=== PATIENT | male | born 1975 | race Caucasian/White ===

== ENCOUNTER 2024-12-18 21:14 | Inpatient (IN) | payer SELFPAY ==
--- OUTSIDE RECORDS SUMMARY | 2024-12-18 21:25 | XMS_ITS | Clinical Summary ---
Author Organization [facility] Address [address] [place] [address] Phone Care Team Providers Care Exhaust Tender Name Role Phone Provider, None Primary Care Provider Unavailabl e Allergies Active Allergy Reactions Criticality Noted Date Comments No Known Drug Allergy Other (see Comments) 04/2002 No Known Latex Allergy Other (see Comments) 04/2002 Medications aspirin 81 MG Chewable Tablet Take 1 Tab by mouth daily. 100 Tab 018 Active Additional Information Patient not taking.Reported on 09/09/2023 atorvastatin (LIPITOR) 40 MG Tablet Take 1 Tab by mouth nightly. 90 Tab 1 019 Active Additional Information Patient not taking.Reported on 09/09/2023 clopidogrel (PLAVIX) 75 MG Tablet Take 1 Tab by mouth daily. 90 Tab 1 019 Active Additional Information Patient not taking.Reported on 09/09/2023 metoprolol Succinate (TOPROL-XL) 25 MG TABLET SR 24 HR Take 0.5 Tabs by mouth nightly. 45 Tab 1 019 Active Additional Information Patient not taking.Reported on 09/09/2023 Lidocaine (Salonpas Pain Relieving) 4 % PatchIndications:Ac poli left-sided low back pain without sciatica 1 Patch by Transdermal route every 24 hours. 20 Patch 024 Active Additional Information Patient not taking.Reported on 02/19/2024 tamsulosin (FLOMAX) 0.4 MG Capsule Take 1 Capsule by mouth daily. For stent discomfort. May cause dizziness 30 Capsule Active oxybutynin (DITROPAN) 5 MG Tablet Take 1 Tablet by mouth 2 times daily as needed (bladder spasm, stent discomfort). May cause constipation. Take with stool softener. May cause dry mouth. Stop if foggy or cloudy memory 15 Tablet Active Additional Information Patient not taking.Reported on 02/19/2024 oxybutynin (DITROPAN) 5 MG Tablet Take 1 Tablet by mouth 2 times daily as needed (bladder spasm, stent discomfort). Take 1 Tablet by mouth 2 times daily as needed (bladder spasm, stent discomfort). May cause constipation. Take with stool softener. May cause dry mouth. Stop if foggy or cloudy memory 15 Tablet Active Additional Information Patient not taking.Reported on 02/19/2024 tamsulosin (FLOMAX) 0.4 MG Capsule Take 1 Capsule by mouth daily. Take 1 Capsule by mouth daily. For stent discomfort. May cause dizziness 30 Capsule Active famotidine (PEPCID) 20 MG TabletIndications:S ymptomatic Gastroesophageal Reflux Disease (Inactive) Take 1 Tablet by mouth 2 times daily as needed for Heartburn. Indications: Gastroesophageal Reflux Disease with Current Symptoms 30 Tablet Active HYDROcodone-acetami nophen (NORCO) 5-325 MG TabletIndications:R ight ureteral stone Take 1 Tablet by mouth every 4 hours as needed for Severe pain. 20 Tablet Active Additional Information Patient not taking.Reported on 02/19/2024 diazePAM (VALIUM) 5 MG TabletIndications:R enal colic on right side Take 1 Tablet by mouth every 8 hours as needed for Muscle spasms. 15 Tablet Active Additional Information Patient not taking.Reported on 02/19/2024 ketorolac (TORADOL) 10 MG Tablet Take 1 Tablet by mouth every 6 hours as needed for Mild or more severe pain, Moderate or more severe pain or Severe pain. 20 Tablet 024 Active Additional Information Patient not taking.Reported on 02/19/2024 ondansetron (ZOFRAN) 4 MG TabletIndications:N ausea and Vomiting Take 1-2 Tablets by mouth every 8 hours as needed for Nausea - 1st line. 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 Encounters Date Type Department Care Team Description 11/18/2024 Results Follow-Up [facility] [address] [place] [address] Uzma Swartz, RUSSEL, PUMP AND BLOWER OPERATOR CT ABDOMEN PELVIS W/ CONTRAST 11/16/2024 9:04 PM CDT - 11/17/2024 2:58 AM CDT Emergency [facility] Emergency Dept [address] [place] [address] Tesfaye Mccartney MD Hypercalcemia Discharge Disposition: Discharged to home or Selfcare 11/16/2024 Travel from Last 3 Months Social History Tobacco Use Types Packs/Day Years Used Date Smoking Tobacco: Some Days Cigarettes Smokeless Tobacco: Never Tobacco Cessation:Ready to Q uit: Not Asked Alcohol Use Standard Drinks/Week Comments No 0 (1 standard drink = 0.6 oz pur e alcohol) Sexually Active Control Partners Comments Yes Female Sex and Gender Information Value Date Recorded Sex Assigned at Male 11/16/2024 9:07 PM CDT 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 Gender Identity Male 11/16/2024 9:07 PM CDT Sexual Orientation Not on file Last Filed Vital Signs Vital Sign Reading Time Taken Comments Blood Pressure 125/79 11/17/2024 12:55 AM CDT Pulse 80 11/17/2024 12:55 AM CDT Temperature 37.1 C (98.7 F) 11/16/2024 8:38 PM CDT Respiratory Rate 16 11/17/2024 12:55 AM CDT Oxygen Saturation 95% 11/17/2024 12:55 AM CDT Inhaled Oxygen Concentration - - Weight 83.9 kg (185 lb) 11/16/2024 8:38 PM CDT Height 175.3 cm (5' 9 ) 11/16/2024 8:38 PM CDT Body Mass Index 27.32 11/16/2024 8:38 PM CDT Plan of Treatment Health Maintenance Due Date Last Done Comments Hepatitis C Virus (HCV) Screening 1976 TdaP Immunization 1976 Hepatitis B Immunization (1 of 3 - 19+ 3-dose series) 1995 Pneumococcal Immunization Co mbined (1 of 2 - PCV) 1995 Cologuard 2021 Colonoscopy 2021 Colorectal Cancer Screening 2021 Immunochemical Fecal Occult Blood 2021 SARS-COV-2 Immunization ( season) 2023 Influenza Immunization (#1) 2024 Respiratory Syncytial Virus (RSV) Immunization (Adult) (1 - 1-dose 75+ series) 2051 Human Papillomavirus (HPV) Immunization Aged Out No longer eligible b ased on patient's age to complete this topic Meningococcal Immunization (ACWY) Aged Out No longer eligible based on patient's age to complete this topic Rotavirus Immunization Aged Out No lo nger eligible based on patient's age to complete this topic Medical Devices Implanted Type Area Ship Joiner Device Identifier Shelf Expiration Date Model / Serial / Lot Stent Coronary Bianca Xience Everolimus Eluting [id number] - [id number] Implanted:Qty: 1 on 03/23/2018 by Bladimir Obrien MD at [facility] IMPLANT N/A: Coronary [employer] 03/12/2019 [id number] / NA / [id number] Device Clsr 6-7fr Mynxgrip Gang Vibrator Operator Vasc Bln Cath Lock Syr Integrate Sealant 10ml Lf Disp - [id number] Implanted:Qty: 1 on 03/23/2018 by Bladimir Obrien MD at [facility] IMPLANT N/A: Coronary [employer] 02/22/2020 [id number] / NA / [id number] Stent Ureteral Tria Soft 6fr X 28cm - [id number] Implanted:Qty: 1 on 02/06/2024 by Epifanio Corrales DO at [facility] IMPLANT Right: Ureter [employer] 11/08/2026 [id number] / N/A / [id number] Description:String on Procedures Procedure Name Priority Date/Time Associated Diagnosis Comments CT ABDOMEN PELVIS W/ CONTRAST Stat with Interpretation 11/17/2024 12:51 AM CDT TROPONIN I, HIGH SENSITIVITY (HSTRP) STAT 11/17/2024 12:31 AM CDT LIPASE STAT 11/16/2024 11:03 PM CDT TROPONIN I, HIGH SENSITIVITY (HSTRP) STAT 11/16/2024 11:03 PM CDT CMP (COMPREHENSIVE METABOLIC PANEL) STAT 11/16/2024 10:55 PM CDT EKG 12 LEAD STAT 11/16/2024 10:53 PM CDT CBC WITH AUTO DIFFERENTIAL STAT 11/16/2024 10:50 PM CDT COMPLETE BLOOD COUNT (CBC) WITH DIFF STAT 11/16/2024 10:50 PM CDT POCT GLUCOSE STAT 11/16/2024 8:42 PM CDT EKG SCAN 11/16/2024 12:00 AM CDT from Last 3 Months Results * CT ABDOMEN PELVIS W/ CONTRAST (11/17/2024 12:51 AM CDT) Anatomical Region Laterality Modality Abdomen N/A Computed Tomogra phy 11/17/2024 12:5 1 AM CDT Impressions 11/17/2024 4:02 AM CDT IMPRESSION: 1. Similar hazy central mesentery with scattered nodular densities, compatible with chronic mesenteric panniculitis. 2. Otherwise, no CT abnormality demonstrated to explain the patient's symptoms. As the teaching physician I have personally reviewed this study and concur with this interpretation. Ramos Abel M.D. Narrative 11/17/2024 4:02 AM CDT DICTATING PHYSICIAN: Nabil Ann D.O. EXAM DATE: 11/17/2024 12:51 AM EXAM: CT ABDOMEN PELVIS W/ CONTRAST COMPARISON: CT 02/10/2024, 02/06/2024 INDICATION: Generalized abdominal pain with loose stools and appetite changes. PROCEDURE: CT of the abdomen and pelvis performed with contrast. Delayed images were performed. 100 mL of Isovue 300 was injected IV. Enteric contrast was not given. Radiation dose reduction techniques were employed. CTDIvol: 2.5 - 12.7 mGy. DLP: 941 mGy-cm. FINDINGS: Lower chest: Basilar atelectasis/scarring. Coronary atherosclerotic calcifications. Coronary stent. Visualized esophagus: Normal. ABDOMEN: Liver: Normal size and smooth surface contour. Portal vein is patent. Gallbladder: No calcified stones. Bile ducts are within normal limits. Pancreas: No significant peripancreatic fat stranding or fluid. No mass. No ductal dilatation. Spleen: Normal. Adrenals: Unremarkable. Unchanged right adrenal calcification. Kidneys: No calculus, exophytic mass, or hydronephrosis. Right renal cyst(s), for which no follow up is needed per imaging guidelines consensus criteria. Subcentimeter nonobstructing bilateral renal stones. Aorta: Nonaneurysmal aorta with atherosclerotic calcified plaque. IVC: Normal. Retroperitoneum: No adenopathy. Stomach: Small hiatal hernia. PELVIS: Bladder: Underdistended. Reproductive Organs: Mild prostatomegaly. The seminal vesicles are symmetric. Colon: No focal wall thickening or pericolic fat stranding. Appendix: Normal size. Small Bowel: Nondilated. Mesentery: Similar hazy appearance of the central mesentery with scattered soft tissue nodular densities, possibly lymph nodes. Normal splanchnic veins. Peritoneum: No free air or free fluid. Body wall: Small fat-containing umbilical hernia. Bones: No destructive lesion. Procedure Note Ramos Abel MD - 11/17/2024 DICTATING PHYSICIAN: Nabil Ann D.O. EXAM DATE: 11/17/2024 12:51 AM EXAM: CT ABDOMEN PELVIS W/ CONTRAST COMPARISON: CT 02/10/2024, 02/06/2024 INDICATION: Generalized abdominal pain with loose stools and appetitechanges. PROCEDURE: CT of the abdomen and pelvis performed with contrast. Delayedimages were performed. 100 mL of Isovue 300 was injected IV. Entericcontrast was not given. Radiation dose reduction techniques were employed.CTDIvol: 2.5 - 12.7 mGy. DLP: 941 mGy-cm. FINDINGS: Lower chest: Basilar atelectasis/scarring. Coronary atheroscleroticcalcifications. Coronary stent. Visualized esophagus: Normal. ABDOMEN: Liver: Normal size and smooth surface contour. Portal vein is patent. Gallbladder: No calcified stones. Bile ducts are within normal limits. Pancreas: No significant peripancreatic fat stranding or fluid. No mass.No ductal dilatation. Spleen: Normal. Adrenals: Unremarkable. Unchanged right adrenal calcification. Kidneys: No calculus, exophytic mass, or hydronephrosis. Right renalcyst(s), for which no follow up is needed per imaging guidelines consensuscriteria. Subcentimeter nonobstructing bilateral renal stones. Aorta: Nonaneurysmal aorta with atherosclerotic calcified plaque. IVC: Normal. Retroperitoneum: No adenopathy. Stomach: Small hiatal hernia. PELVIS: Bladder: Underdistended. Reproductive Organs: Mild prostatomegaly. The seminal vesicles aresymmetric. Colon: No focal wall thickening or pericolic fat stranding. Appendix: Normal size. Small Bowel: Nondilated. Mesentery: Similar hazy appearance of the central mesentery with scatteredsoft tissue nodular densities, possibly lymph nodes. Normal splanchnicveins. Peritoneum: No free air or free fluid. Body wall: Small fat-containing umbilical hernia. Bones: No destructive lesion. IMPRESSION: 1. Similar hazy central mesentery with scattered nodular densities,compatible with chronic mesenteric panniculitis. 2. Otherwise, no CT abnormality demonstrated to explain the patient'ssymptoms. As the teaching physician I have personally reviewed this study and concurwith this interpretation. Ramos Abel M.D. Ino Jimenez DO IMG CT ORDERABLES Final Re sult * TROPONIN I, HIGH SENSITIVITY (HSTRP) (11/17/2024 12:31 AM CDT) Only the most recent of2 resultswithin the time period is included. TROPONIN I, HIGH SENSITIVITY- MUÑIZ 4 <=35 ng/L 11/17/2024 1:14 AM CDT [facility] Comment: High-sensitivity troponin I results are reported in ng/L making the result appear to be 1,000 times higher than the contemporary troponin I value which is reported in ng/ml. Results from [facility]. Blood Venipuncture / Unknown 11/17/2024 12:31 AM CDT 11/17/2024 12:36 AM CDT Ino Jimenez DO CHEMISTRY ORDERABLES Final Result Performing Organization Address [facility]/ZIP Co de Phone Number [facility] [address] [place] [address], [place] * (ABNORMAL) Lipase (11/16/2024 11:03 PM CDT) Pathologist [facility] LIPASE 142(H) 8 - 78 U/L 11/16/2024 11:37 PM CDT [facility] Blood Venipuncture / Unknown 11/16/2024 11:03 PM CDT 11/16/2024 11:17 PM CDT Ino Jimenez DO CHEMISTRY ORDERABLES Final Result Performing Organization Address [facility] Co de Phone Number [facility] [address] [place] [address], [place] * (ABNORMAL) CMP (11/16/2024 10:55 PM CDT) SODIUM 134(L) 136 - 145 mmol/L 11/16/2024 11:49 PM CDT [facility] POTASSIUM 3.6 3.5 - 5.1 mmol/L 11/16/2024 11:49 PM CDT [facility] CHLORIDE 93(L) 98 - 107 mmol/L 11/16/2024 11:49 PM CDT [facility] CO2, VENOUS 22 22 - 30 mmol/L 11/16/2024 11:49 PM CDT [facility] ANION GAP 19.0(H) <18.0 mmol/L 11/16/2024 11:49 PM T [facility] GLUCOSE 109(H) 70 - 99 mg/dL 11/16/2024 11:49 PM CDT [facility] BUN 20 9 - 21 mg/dL 11/16/2024 11:49 PM T [facility] CREATININE, BLOOD 1.40(H) 0.70 - 1.30 mg/dL 11/16/2024 11:49 PM [facility] BUN/CREATININE RATIO 14 12 - 20 ratio 11/16/2024 11:49 PM [facility] TOTAL PROTEIN 8.7(H) 6.0 - 8.0 g/dL 11/16/2024 11:49 PM [facility] ALBUMIN 5.1(H) 3.5 - 5.0 g/dL 11/16/2024 11:49 PM [facility] A/G RATIO 1.4 1.0 - 2.2 11/16/2024 11:49 PM T [facility] CALCIUM 12.2(HH) 8.7 - 10.5 mg/dL 11/16/2024 11:49 PM [facility] T BILI 0.7 0.2 - 1.2 mg/dL 11/16/2024 11:49 PM T [facility] SGOT (AST) 46(H) <43 U/L 11/16/2024 11:49 PM [facility] SGPT (ALT) 34 <56 U/L 11/16/2024 11:49 PM [facility] ALKALINE PHOSPHATASE 106 40 - 150 U/L 11/16/2024 11:49 PM [facility] GFR, ESTIMATED >60 >=60 11/16/2024 11:49 PM [facility] Comment: Creatinine Clearance is the preferred criteria for selecting drug dose adjustments in renally impaired patients. The GFR is provided as additional pertinent clinical information. GFR is reported in mL/min/1.73 sq m. Calculation based on the Chronic Kidney Disease Epidemiology Collaboration (CKD- EPI) equation refit without adjustment for race. GFR, EST. >60 >=60 025 11:49 PM CDT [facility] GFR, EST. NONAFRICAN 54(L) >=60 11/16/2024 11:49 PM CDT [facility] Blood 11/16/2024 10:5 5 PM CDT 11/16/2024 11:02 PM CDT us Ino Jimenez DO CHEMISTRY ORDERABLES Final Result [facility] [address] [place] [address], [place] * EKG 12 LEAD (11/16/2024 10:53 PM CDT) Ventricular Rate 90 BPM EXTERNAL EKG Atrial Rate 90 BPM EXTERNAL EKG P-R Interval 114 ms EXTERNAL EKG QRS Duration 86 ms EXTERNAL EKG Q-T Duration 352 ms EXTERNAL EKG QTC CALCULATION 430 ms EXTERNAL EKG P Campbell 46 degrees EXTERNAL EKG R Campbell 18 degrees EXTERNAL EKG T Campbell 49 degrees EXTERNAL EKG 11/16/2024 10:5 3 PM CDT Impressions EXTERNAL EKG - 11/17/2024 6:11 AM CDT NORMAL SINUS RHYTHM NORMAL ECG WHEN COMPARED WITH ECG OF 24-MAR-2018 04:38, VENT. RATE HAS INCREASED BY 30 BPM NONSPECIFIC T WAVE ABNORMALITY HAS REPLACED INVERTED T WAVES IN INFERIOR LEADS Confirmed by Brennan Brandon ([id number]) on 11/17/2024 6:11:41 AM Narrative Procedure Note Brennan Brandon MD - 11/17/2024 IMPRESSION: NORMAL SINUS RHYTHM NORMAL ECG WHEN COMPARED WITH ECG OF 24-MAR-2018 04:38, VENT. RATE HAS INCREASED BY 30 BPM NONSPECIFIC T WAVE ABNORMALITY HAS REPLACED INVERTED T WAVES IN INFERIOR LEADS Confirmed by Brennan Brandonud Jaddo ([id number]) on 11/17/2024 6:11:41 AM us Ino Jimenez DO IMG ECG ORDERABLES Final R esult EXTERNAL EKG * (ABNORMAL) CBC with Auto Differential (11/16/2024 10:50 PM CDT) WBC 12.39(H) 4.00 - 12.00 10(3)/[facility] 11/16/2024 11:12 PM CDT [facility] RBC 5.81(H) 4.40 - 5.80 10(6)/[facility] 11/16/2024 11:12 PM CDT [facility] HEMOGLOBIN (HGB) 16.9(H) 13.0 - 16.5 g/dL 11/16/2024 11:12 PM CDT [facility] HEMATOCRIT (HCT) 49.1 38.0 - 50.0 % 11/16/2024 11:12 PM CDT [facility] MCV 84.5 82.0 - 96.0 fL 11/16/2024 11:12 PM CDT [facility] MCH 29.1 26.0 - 32.0 pg 11/16/2024 11:12 PM CDT [facility] MCHC 34.4 31.0 - 36.0 g/dL 11/16/2024 11:12 PM CDT [facility] PLATELET COUNT 261 140 - 440 10(3)/[facility] 11/16/2024 11:12 PM CDT [facility] RDW 13.1 11.8 - 15.5 % 11/16/2024 11:12 PM CDT [facility] MPV 10.2 8.0 - 12.6 fL 11/16/2024 11:12 PM CDT [facility] NEUTROPHILS 73.6(H) 40.0 - 68.0 % 11/16/2024 11:12 PM CDT [facility] LYMPHOCYTES 14.9(L) 19.0 - 49.0 % 11/16/2024 11:12 PM CDT [facility] MONOCYTES 10.0 3.0 - 13.0 % 11/16/2024 11:12 PM CDT [facility] EOSINOPHILS 0.3 0.0 - 8.0 % 11/16/2024 11:12 PM CDT [facility] BASOPHILS 0.4 0.0 - 1.0 % 11/16/2024 11:12 PM CDT [facility] IMMATURE GRANULOCYTE 0.8(H) 0.0 - 0.4 % 11/16/2024 11:12 PM CDT [facility] Comment:Immature Granulocyte s includes Metamyelocytes, Myelocytes, and Promyelocytes. ABSOLUTE NEUTROPHILS 9.11(H) 1.40 - 5.30 10(3)/[facility] 11/16/2024 11:12 PM CDT [facility] ABSOLUTE LYMPHOCYTES 1.85 0.90 - 3.30 10(3)/[facility] 11/16/2024 11:12 PM CDT [facility] ABSOLUTE MONOCYTES 1.24(H) 0.10 - 0.90 10(3)/[facility] 11/16/2024 11:12 PM CDT [facility] ABSOLUTE EOSINOPHIL 0.04 0.00 - 0.50 10(3)/[facility] 11/16/2024 11:12 PM CDT [facility] ABSOLUTE BASOPHILS 0.05 0.00 - 0.10 10(3)/[facility] 11/16/2024 11:12 PM CDT [facility] ABSOLUTE IMMATURE GRANULOCYTE 0.10(H) 0.00 - 0.03 10 (3) [facility]. 11/16/2024 11:12 PM CDT [facility] NRBC PER 100 WBC 0 11/17/19 11:12 PM CDT [facility] Blood 11/16/2024 10:5 0 PM CDT 11/16/2024 11:02 PM CDT us Ino Jimenez DO HEMATOLOGY ORDERABLES Nichole berrios Result [facility] [address] [facility] [place] [address], [place] * (ABNORMAL) POCT Glucose (11/16/2024 8:42 PM CDT) GLUCOSE,BEDSID E POCT 110(H) 70 - 99 mg/dL 11/16/2024 8:43 PM CDT [facility] Blood 11/16/2024 8:42 PM CDT 11/16/2024 8:43 PM CDT us None Provider POINT OF CARE TESTING Final Resu lt Performing Organization Address City/[facility] Co de Phone Number [facility] [address] [place] [address], [place] * EKG SCAN (11/16/2024 12:00 AM CDT) 11/16/2024 us Provider Scan IMG ECG ORDERABLES Final Result Performing Organization Address City/[facility]/ZIP Co de Phone Number RESULTING AGENCY from Last 3 Months Advance Directives * Full Code (Latest Code Status on File) Date Activated Date Inactivated Comments 03/23/2018 3:48 PM 03/25/2018 4:04 PM CPR-Full Tr eatment: FULL ARREST: Attempt Resuscitation/CPR wit intubation and mechanical ventilation. PRE-ARREST: Use entire range of life support measures to stabilize the patient. Care Teams Exhaust Tender Relationship Specialty Start Date End Date Provider, None [place] PCP - General 02/10/24
--- OUTSIDE RECORDS SUMMARY | 2024-12-18 21:25 | XMS_ITS | Patient Health Record ---
Author Organization [facility] Address [address] [place] [address] Support Name Relationship Address Phone Nir Killian Guarantor Unknown [phone] Allergies No Known Allergies Reason For Referral No Information Medications Medication SIG (Take, Route, Frequency, Duration) Notes Start Date End Date Status Diclofenac Sodium 75 MG Oral two times per day; Duration: 0 take 1 (one) by Oral route two times per day with food 11/21/2017 Active Ibuprofen 800 MG Oral daily; Duration : 0 take 1 (one) Tablet by Oral route daily 11/01/2017 Active Avalon 7.5-325 MG Oral three times per day; Duration: 0 take 1 (one) Tablet by Oral route three times per day as needed 11/01/2017 Active Problems Problem Type SNOMED Code ICD Code Onset Dates Problem Status W/U Status Risk Notes Problem Displacement of lumbar intervertebral disc without myelopathy (46667847) Other intervertebral disc displacement, lumbar region (M51.26) 11/22/19 18 Active confirmed Problem Lumbar radiculopathy (880875385) Radiculopathy, lumbar region (M54.16) 11/02/19 18 Active confirmed Plan Of Treatment No Information Insurance Providers Payer Name Payer Address Payer Phone Subscriber Number Group Number Insured Name Patient Relationship to Insured Coverage Start Date Coverage End Date [facility] PPO [address] [place], [place] [id number] Nir Killian Self - patient is the insured 8 Medical (General) History Surgical History Surgery Date(Month/Year) General Surgery General surgery removal of adrenal gland 2006
[2024-12-18 22:41] VITALS: BMI 26.7
[2024-12-18 22:42] VITALS: BP 138/88; PULSE 86; RESP 16; TEMP 36.4; O2SAT 96
--- NOTE | 2024-12-19 01:05 | PC.ADMIT ---
Patient is a 49 years old male who was transferred to from [facility] to [facility] on 12/18/24 around 2130 hours. Legal status is a CV. Pt arrived on the unit accompanied by 2 housekeeper cleaning cooking and security. Per transfer paperwork, patient presented to their ED on 12/17/24. He was BIBA from the community under section 12 by [employer] police, after he was found in his car at night, with a gun. He reported he got the gun 3 weeks ago to kill himself. [employer] police confiscated the weapon per report of officer Macario. Patient stated that his trigger is loneliness, and he bought the gun 3 weeks prior to his trip to [place] with an intent to kill himself. However patient changed his mind, and drove to [place] seeking people that he loves and cares about. [facility] staff spoke with his sister, who confirmed that patient had been in touch with a woman residing in [place], and decided to come and try to start a relationship with her. Patient had indicated that he intended to try until March, and planned to keep the gun in case the relationship did not work. Skin assessment was unremarkable, weight and height were obtained. Vital signs assessed, patient oriented to the unit, placed on 15 minuets safety checks.
[2024-12-19 08:00] VITALS: BP 98/56; PULSE 60; RESP 16; TEMP 36.4; O2SAT 96
[2024-12-19 08:58] LABS: Cholesterol 202 mg/dL (<200); HDL Cholesterol 33 mg/dL (>40); Magnesium 2.2 mg/dL (1.6-2.6); Triglycerides 174 mg/dL (<150)
--- NOTE | 2024-12-19 09:10 | HO.PSYADMNOT ---
HPI Date of Service: 12/19/24 Chief Complaint: F33.2 Sources of Information: patient interviewed and chart reviewed HPI Subjective Notes: Richey Warning and Conditional Voluntary Healthcare Proxy: No Guardianship: No Medical Problems Affecting Mental Status: No Narrative: 49-year-old male with history of hypertension and [place] x2 was a direct transfer from [facility] to [facility] on 12/18/2024 for suicide ideation with plan to kill himself with a gun. On interview with the patient, he notes that 2 days ago, he drove from [place] to [place] to visit people i care for. However, he arrived late, around 22:30. He did not want to wake the people up. Therefore, he sat in his car. After a while, he got out of his car look through the windows of the house to see if lights were on. No lights were on. He returned to his car and smoked a cigarette. He believes the neighbors saw him looking at the windows of the house and notified the police. When the police arrived, he was asked to come out of his vehicle and also whether he possessed a weapon. He told the police that he had a gun he had a gun hidden his vehicle. The police immediately thought he was there to hurt the people at the house. He told the police he but the gun to use it on himself 3 weeks ago because i hit a low point. He notes that he told the police that instead of using the gun on himself, he decided to drive to [place] to visit the people he cares about. The police confiscated the gun and brought him to [facility]. He would not elaborate about hit a low point. However, per nursing collateral, patient but the gun 3 weeks prior to driving to [place] with an intent to kill himself. He noted loneliness as his trigger. Also, per nursing, his sister confirmed that the patient had been in touch with a woman who resides in [place]; therefore, he decided to come to [place] to start a relationship with her. He would try to work on the relationship until March, but intends to keep the gun in case the relationship did not work. He denies history of mental illness. He currently denies anxiety or depression. He denies SI/HI/AH/VH. He notes that he has been drinking 2-3 beers 1-2 days per year for over 2 decades. He smokes cannabis occasionally. He is not interested in taking psychotropic medications at this time. Patient seen at 09:45 on 12/19/2024. Past Psychiatric History: Denies h/o mental illness No IPLOC No OP providers Denies h/o SA or SBI Medical Evaluation Reviewed: Yes [facility] Medical History (Updated 12/19/24 @ 12:32 by Sandee Lynch CNP) CAD (coronary artery disease) Family History: Denies family h/o mental illness Social History: Single No child 1 younger sister Parent GED Was in the [email or web address] x 9.5 years, has been a x 10 yrs Substance History: Drinks 2-3 beers 1-2 days per year for over 2 decades. Smokes cannabis and cigarettes occasionally Trauma History: Denies Diagnostics Vital Signs (24Hr): Vital Signs - 24 hr 12/18/24 22:42 12/19/24 08:00 Temperature 97.6 F 97.6 F Pulse Rate 86 60 Respiratory Rate 16 16 Blood Pressure 138/88 98/56 L Pulse Oximetry 96 96 Oxygen Delivery Method Room Air BMI result Body Mass Index 26.7 Labs Labs: Laboratory Results - last 48 hr 12/19/24 08:16 Magnesium 2.2 Triglycerides 174 H Cholesterol 202 H LDL Cholesterol, Calc 135 H HDL Cholesterol 33 L Meds/Allergies Meds Home Medications ?Medication ?Instructions ?Recorded ?Confirmed ?Type No Known Home Meds 12/18/24 12/18/24 History Allergies Allergies Allergy/AdvReac Type Severity Reaction Status Date / Time No Known Allergies Allergy Verified 12/18/24 21:52 Mental Status Exam Mental Status Exam Narrative: Appearance: Casually dressed, adequate hygiene Behavior: Irritable. Talkative. Cooperative throughout the interview. Eye contact is appropriate, and there are no signs of psychomotor agitation or retardation Speech: Normal volume and prosody Thought process: Logical and goal-directed Thought content: Future oriented no self-harming thoughts Mood: Irritable Affect: Constricted SI:denies HI:denies VH/AH:none Delusions:None Insight/judgment: Impaired insight and judgment Memory/cog: Alert, oriented x 4. grossly intact to conversational testing Assessment & Plan Assessment & Plan (1) Suicide ideation: Status: Acute Code(s): R45.851 - Suicidal ideations Plan 49-year-old male with history of hypertension and [place] x2 was a direct transfer from [facility] to [facility] on 12/18/2024 for suicide ideation with plan to kill himself with a gun. On interview with the patient, he notes that 2 days ago, he drove from [place] to [place] to visit people i care for. However, he arrived late, around 22:30. He did not want to wake the people up. Therefore, he sat in his car. After a while, he got out of his car look through the windows of the house to see if lights were on. No lights were on. He returned to his car and smoked a cigarette. He believes the neighbors saw him looking at the windows of the house and notified the police. When the police arrived, he was asked to come out of his vehicle and also whether he possessed a weapon. He told the police that he had a gun he had a gun hidden his vehicle. The police immediately thought he was there to hurt the people at the house. He told the police he but the gun to use it on himself 3 weeks ago because i hit a low point. He notes that he told the police that instead of using the gun on himself, he decided to drive to [place] to visit the people he cares about. The police confiscated the gun and brought him to [facility]. He would not elaborate about hit a low point. However, per nursing collateral, patient but the gun 3 weeks prior to driving to [place] with an intent to kill himself. He noted loneliness as his trigger. Also, per nursing, his sister confirmed that the patient had been in touch with a woman who resides in [place]; therefore, he decided to come to [place] to start a relationship with her. He would try to work on the relationship until March, but intends to keep the gun in case the relationship did not work. He denies history of mental illness. He currently denies anxiety or depression. He denies SI/HI/AH/VH. He notes that he has been drinking 2-3 beers 1-2 days per year for over 2 decades. He smokes cannabis occasionally. He is not interested in taking psychotropic medications at this time. Formulation/Clinical reasoning: SI: Likely due to psychosis restrictions. It is possible that he has undiagnosed/untreated mental illness. Continue current treatment regimen. May take p.r.n. medications. Instructed on the risks, benefits, and potential adverse reactions of the medications. Verbalized understanding and agreed with the plan. Plan Admit to M5. CV 15 minutes check. Diagnostics as needed. Collateral contact. Continue remainder of regime. Encouraged full milieu. Discharge planning. Patient educated on: medication risk/benefits and therapeutic strategies Reason for continued inpatient stay Substantial Risk for: harm to self and rapid decompensation Statement Statement: I have reviewed the history and physical and performed a pertinent examination on my patient. No changes have occurred unless specified. If the History and Physical was not performed prior to admission, the Hospitalist's service will be consulted for completing the admission physical. Time Spent With Patient Time: Total time managing care of this patient today ____ minutes.
[2024-12-19 09:13] LABS: Free T4 (Free Thyroxine) 1.00 ng/dL (0.71-1.85); Thyroid Stimulating Hormone 0.82 uIU/mL (0.32-4.0)
[2024-12-19 09:17] LABS: Hemoglobin A1C 150.8887 umol/L; Total Hemoglobin (HGBA1C) 4041.1614 umol/L
[2024-12-19 09:23] LABS: Folate 4.1 ng/mL (> or = 4.0); Vitamin B12 703 pg/mL (200-900)
--- NOTE | 2024-12-19 09:38 | HO.PM.IMCN ---
History of Present Illness Data of Consult Service Date: 12/19/24 Primary Care Provider: Unknown Physician HPI Reason for consult: Medical H & P This is a 49-year-old male with history of coronary artery disease sees who was transferred from [facility] in [place]. Per previous documentation patient was brought in from the community under section 12 after he was found in his car with a gun. He was transferred to [place] [id number] for further psychiatric care. Medical history is limited due to patient cooperation. Patient states that he hates all medical staff, hospitals and medication and has no respect medical profession. He does report a history of two heart attacks with two stents (one replaced the other per his report) but does not take any medication and does not follow with Cardiology. Review of Systems Review of Systems: Denies chest pain [facility] Medical History (Updated 12/19/24 @ 09:52 by DEANA Anderson) CAD (coronary artery disease) Social History Household Members: None Housing: Homeless Do you presently have visiting nurse or other home services: No Patient Tobacco Use Status: Never used Tobacco Smoked in Last 30 Days: No e-Cigarette/Vaping Use: Never Used Second Hand Smoke Exposure: No Have you been hit, kicked, punched, or otherwise hurt by someone within the past year? If so, by whom?: No Do you feel safe in your current relationship?: No Current Relationship Is there a partner from a previous relationship who is making you feel unsafe now?: No Are you made to feel afraid or neglected: No Advance Directives: No Advance Directives Information Provided: Yes Do you have a plan to hurt others: No Plan Recently lost weight without trying: No How much weight loss: Not applicable Eating poorly because of decreased appetite: No Nutrition screen score: 0 Nutrition Risks: No Nutritional Risk Poor oral hygiene: No Meds Allergies Allergy/AdvReac Type Severity Reaction Status Date / Time No Known Allergies Allergy Verified 12/18/24 21:52 Active Medications: Current Medications Acetaminophen (Acetaminophen 325 Mg Tablet) 650 mg PO Q6H PRN PRN Reason: Headache/Pain, Scale 1-10 Al Hydroxide/Mg Hydroxide (Magnesium Hydrox/Alum Hydrox 30 Ml Oral.Susp) 30 ml PO Q6H PRN PRN Reason: Heartburn/Nausea Hydroxyzine HCl (Hydroxyzine Hcl 25 Mg Tablet) 25 mg PO Q6H PRN PRN Reason: mild anxiety Magnesium Hydroxide (Milk Of Magnesia 30 Ml Oral.Susp) 30 ml PO DAILY PRN PRN Reason: Constipation Nicotine Polacrilex (Nicotine Polacrilex 2 Mg Gum) 4 mg BUCCAL Q2H PRN PRN Reason: Nicotine Cravings Trazodone HCl (Trazodone Hcl 50 Mg Tablet) 50 mg PO BEDTIME MRX1 PRN PRN Reason: Insomnia Home Medications ?Medication ?Instructions ?Recorded ?Confirmed ?Last Taken ?Type No Known Home Meds 12/18/24 12/18/24 Unknown History Physical Exam Vital Signs and Narrative: Vital Signs: Last Vital Signs Temp 97.6 F 12/19/24 08:00 Pulse 60 12/19/24 08:00 Resp 16 12/19/24 08:00 BP 98/56 L 12/19/24 08:00 Pulse Ox 96 12/19/24 08:00 O2 Del Method Room Air 12/18/24 22:42 BMI result Body Mass Index 26.7 Const: Other: calm but uncooperative; answers some questions. did allow limited exam General: comfortable, alert and awake; No no acute distress Nutritional Appearance: average body habitus Resp: Effort & Inspection: normal respiratory effort, able to speak in complete sentences, no respiratory distress and no use of accessory muscles Auscultation: clear to auscultation bilaterally Cardio: Rate: regular rate Neuro: General: CN's II-XI intact bilaterally Results Labs Labs: Laboratory Results - last 24 hr 12/19/24 08:16 Estimat Average Glucose 114 Hemoglobin A1c % 5.6 Magnesium 2.2 Triglycerides 174 H Cholesterol 202 H LDL Cholesterol, Calc 135 H HDL Cholesterol 33 L Vitamin B12 703 Folate 4.1 TSH 0.82 Free T4 1.00 Assessment and Plan (1) General medical exam: Status: Acute Plan This is a 49-year-old male with reported history of CAD status stent placement who was brought in on section 12 being found with a gun. Hospitalist consultation somewhat limited due to lack of patient cooperation. CAD s/p stent placement Would not disclose location of Cardiac surgery Does not follow with Cardiology, does not take any aspirin etcetera ideally patient would follow up with PCP or cardiology as outpatient There does not appear to be any acute medical issues at this time. Feel free to consult us if anything acute arises
[2024-12-19 20:03] VITALS: BP 122/76; PULSE 97; RESP 16; TEMP 36.9; O2SAT 98
[2024-12-20 08:00] VITALS: BP 112/68; PULSE 87; RESP 16; TEMP 36.6; O2SAT 99
[2024-12-20] MEDS: Nicotine 14 MG PATCH.TD24 TRANSDERMA (08:33)
--- NOTE | 2024-12-20 09:47 | P.PNPSI_ITS ---
Subjective Subjective Date of Service: 12/20/24 Reason For Visit: F33.2 Subjective Notes: 3 Day Healthcare Proxy: No Guardianship: No Medical Problems Affecting Mental Status: No Interim History: I was angry that I had to be here. Now I am getting to know people and this is an OK place. TDN filed for 12/25. No need for meds he reports. Talked about precipitants to his admit and realizations he has made since admit. Social with peers-reaching out to them as well- I would like to help anyone I can. Medication Compliance: No Side effects from medications: No Attending Groups: Yes Review of Systems Acute medical concerns: No Review of Systems Review of Systems Denies Mental Status Exam Mental Status Exam Patient Appearance: Appropriate Patient Orientation: Person, Place, Time and Situation Level of Consciousness: Alert Patient Behavior: Talkative Mood Description: Constricted Affect Description: Constricted Patient Cognition Impaired: No Ability to Follow Directions: Good Speech Pattern: Spontaneous Speech Memory Description: Intact Hallucinations: None Delusions: Not Present Thought Process: Goal Oriented Thought Content: positive for Goal Oriented Judgement: Fair Diagnostics Vital Signs (24Hr): Vital Signs - 24 hr 12/19/24 20:03 Temperature 98.4 F Pulse Rate 97 Respiratory Rate 16 Blood Pressure 122/76 Pulse Oximetry 98 Oxygen Delivery Method Room Air BMI result Body Mass Index 26.7 Labs Labs: Laboratory Results - last 48 hr 12/19/24 08:16 Estimat Average Glucose 114 Hemoglobin A1c % 5.6 Magnesium 2.2 Triglycerides 174 H Cholesterol 202 H LDL Cholesterol, Calc 135 H HDL Cholesterol 33 L Vitamin B12 703 Folate 4.1 TSH 0.82 Free T4 1.00 Medications Medications Current Medications Acetaminophen (Acetaminophen 325 Mg Tablet) 650 mg PO Q6H PRN PRN Reason: Headache/Pain, Scale 1-10 Al Hydroxide/Mg Hydroxide (Magnesium Hydrox/Alum Hydrox 30 Ml Oral.Susp) 30 ml PO Q6H PRN PRN Reason: Heartburn/Nausea Hydroxyzine HCl (Hydroxyzine Hcl 25 Mg Tablet) 25 mg PO Q6H PRN PRN Reason: mild anxiety Magnesium Hydroxide (Milk Of Magnesia 30 Ml Oral.Susp) 30 ml PO DAILY PRN PRN Reason: Constipation Nicotine (Nicotine 14 Mg Patch.Td24) 14 mg TRANSDERMA DAILY GREY Last Admin: 12/20/24 08:33 Dose: 14 mg Nicotine Polacrilex (Nicotine Polacrilex 2 Mg Gum) 4 mg BUCCAL Q2H PRN PRN Reason: Nicotine Cravings Last Admin: 12/19/24 22:53 Dose: 4 mg Trazodone HCl (Trazodone Hcl 50 Mg Tablet) 50 mg PO BEDTIME MRX1 PRN PRN Reason: Insomnia Allergies Allergies Allergy/AdvReac Type Severity Reaction Status Date / Time No Known Allergies Allergy Verified 12/18/24 21:52 Assessment & Plan Assessment & Plan (1) Suicide ideation: Status: Acute Code(s): R45.851 - Suicidal ideations Plan 49-year-old male with history of hypertension and [place] x2 was a direct transfer from [facility] to [facility] on 12/18/2024 for suicide ideation with plan to kill himself with a gun. On interview with the patient, he notes that 2 days ago, he drove from [place] to [place] to visit people i care for. However, he arrived late, around 22:30. He did not want to wake the people up. Therefore, he sat in his car. After a while, he got out of his car look through the windows of the house to see if lights were on. No lights were on. He returned to his car and smoked a cigarette. He believes the neighbors saw him looking at the windows of the house and notified the police. When the police arrived, he was asked to come out of his vehicle and also whether he possessed a weapon. He told the police that he had a gun he had a gun hidden his vehicle. The police immediately thought he was there to hurt the people at the house. He told the police he but the gun to use it on himself 3 weeks ago because i hit a low point. He notes that he told the police that instead of using the gun on himself, he decided to drive to [place] to visit the people he cares about. The police confiscated the gun and brought him to [facility]. He would not elaborate about hit a low point. However, per nursing collateral, patient but the gun 3 weeks prior to driving to [place] with an intent to kill himself. He noted loneliness as his trigger. Also, per nursing, his sister confirmed that the patient had been in touch with a woman who resides in [place]; therefore, he decided to come to [place] to start a relationship with her. He would try to work on the relationship until March, but intends to keep the gun in case the relationship did not work. He denies history of mental illness. He currently denies anxiety or depression. He denies SI/HI/AH/VH. He notes that he has been drinking 2-3 beers 1-2 days per year for over 2 decades. He smokes cannabis occasionally. He is not interested in taking psychotropic medications at this time. 12/20: TDN to 12/25. Continue to offer treatment. Formulation/Clinical reasoning: SI: Likely due to psychosis restrictions. It is possible that he has undiagnosed/untreated mental illness. Continue current treatment regimen. May take p.r.n. medications. Instructed on the risks, benefits, and potential adverse reactions of the medications. Verbalized understanding and agreed with the plan. Plan Admit to M5. CV 15 minutes check. Diagnostics as needed. Collateral contact. Continue remainder of regime. Encouraged full milieu. Discharge planning. Reason for continued inpatient stay Substantial Risk for: rapid decompensation Time Spent With Patient Time: Total time managing care of this patient today ____ minutes.
[2024-12-20 20:00] VITALS: BP 116/68; PULSE 92; RESP 18; TEMP 37; O2SAT 100
[2024-12-21] MEDS: Nicotine 14 MG PATCH.TD24 TRANSDERMA (08:32)
[2024-12-21 09:25] VITALS: BP 102/65; PULSE 78; RESP 18; TEMP 36.7; O2SAT 96
--- NOTE | 2024-12-21 13:43 | HO.PSYCHPN ---
Subjective Subjective Date of Service: 12/21/24 Reason For Visit: F33.2 Subjective Notes: 3 Day Interim History: Active on unit. social with peers. Reports feeling frustrated d/t being in hospital; however, states he feels pretty good . Patient stated, I'm just being delayed from my plan of renting a place in [place] then finding a job . denies SI/HI/VH/AH. Pt reports he is willing to take medication for treatment of mood; start Abilify 5mg PO bedtime. Attending Groups: Yes Mental Status Exam Mental Status Exam Patient Appearance: Well Grooomed Patient Orientation: Person, Place, Time and Situation Level of Consciousness: Awake and Alert Patient Behavior: Appropriate, Cooperative and Good Eye Contact Mood Description: Calm Affect Description: Calm Ability to Follow Directions: Good Speech Pattern: Clear Memory Description: Intact Hallucinations: None Delusions: Not Present Thought Process: Intact and Goal Oriented Thought Content: positive for Intact Diagnostics Vital Signs (24Hr): Vital Signs - 24 hr 12/20/24 20:00 12/21/24 09:25 Temperature 98.6 F 98.1 F Pulse Rate 92 78 Respiratory Rate 18 18 Blood Pressure 116/68 102/65 Pulse Oximetry 100 96 Oxygen Delivery Method Room Air Room Air BMI result Body Mass Index 26.7 Medications Medications Current Medications Acetaminophen (Acetaminophen 325 Mg Tablet) 650 mg PO Q6H PRN PRN Reason: Headache/Pain, Scale 1-10 Al Hydroxide/Mg Hydroxide (Magnesium Hydrox/Alum Hydrox 30 Ml Oral.Susp) 30 ml PO Q6H PRN PRN Reason: Heartburn/Nausea Hydroxyzine HCl (Hydroxyzine Hcl 25 Mg Tablet) 25 mg PO Q6H PRN PRN Reason: mild anxiety Magnesium Hydroxide (Milk Of Magnesia 30 Ml Oral.Susp) 30 ml PO DAILY PRN PRN Reason: Constipation Nicotine (Nicotine 14 Mg Patch.Td24) 14 mg TRANSDERMA DAILY GREY Last Admin: 12/21/24 08:32 Dose: 14 mg Nicotine Polacrilex (Nicotine Polacrilex 2 Mg Gum) 4 mg BUCCAL Q2H PRN PRN Reason: Nicotine Cravings Last Admin: 12/21/24 12:52 Dose: 4 mg Trazodone HCl (Trazodone Hcl 50 Mg Tablet) 50 mg PO BEDTIME MRX1 PRN PRN Reason: Insomnia Last Admin: 12/20/24 22:22 Dose: 50 mg Allergies Allergies Allergy/AdvReac Type Severity Reaction Status Date / Time No Known Allergies Allergy Verified 12/18/24 21:52 Assessment & Plan Assessment & Plan (1) Suicide ideation: Status: Acute Code(s): R45.851 - Suicidal ideations Plan 49-year-old male with history of hypertension and [place] x2 was a direct transfer from [facility] to [facility] on 12/18/2024 for suicide ideation with plan to kill himself with a gun. On interview with the patient, he notes that 2 days ago, he drove from [place] to [place] to visit people i care for. However, he arrived late, around 22:30. He did not want to wake the people up. Therefore, he sat in his car. After a while, he got out of his car look through the windows of the house to see if lights were on. No lights were on. He returned to his car and smoked a cigarette. He believes the neighbors saw him looking at the windows of the house and notified the police. When the police arrived, he was asked to come out of his vehicle and also whether he possessed a weapon. He told the police that he had a gun he had a gun hidden his vehicle. The police immediately thought he was there to hurt the people at the house. He told the police he but the gun to use it on himself 3 weeks ago because i hit a low point. He notes that he told the police that instead of using the gun on himself, he decided to drive to [place] to visit the people he cares about. The police confiscated the gun and brought him to [facility]. He would not elaborate about hit a low point. However, per nursing collateral, patient but the gun 3 weeks prior to driving to [place] with an intent to kill himself. He noted loneliness as his trigger. Also, per nursing, his sister confirmed that the patient had been in touch with a woman who resides in [place]; therefore, he decided to come to [place] to start a relationship with her. He would try to work on the relationship until March, but intends to keep the gun in case the relationship did not work. He denies history of mental illness. He currently denies anxiety or depression. He denies SI/HI/AH/VH. He notes that he has been drinking 2-3 beers 1-2 days per year for over 2 decades. He smokes cannabis occasionally. He is not interested in taking psychotropic medications at this time. 12/20: TDN to 12/25. Continue to offer treatment. 12/21: Active on unit. social with peers. Reports feeling frustrated d/t being in hospital; however, states he feels pretty good . Patient stated, I'm just being delayed from my plan of renting a place in [place] then finding a job . denies SI/HI/VH/AH. Pt reports he is willing to take medication for treatment of mood; start Abilify 5mg PO bedtime. Formulation/Clinical reasoning: SI: Likely due to psychosis restrictions. It is possible that he has undiagnosed/untreated mental illness. Continue current treatment regimen. May take p.r.n. medications. Instructed on the risks, benefits, and potential adverse reactions of the medications. Verbalized understanding and agreed with the plan. Plan Admit to M5. CV 15 minutes check. Diagnostics as needed. Collateral contact. Continue remainder of regime. Encouraged full milieu. Discharge planning. Patient educated on: diagnosis and medication risk/benefits Reason for continued inpatient stay Substantial Risk for: med/psych decompensation Time Spent With Patient Time: Total time managing care of this patient today _20___ minutes.
[2024-12-21 20:00] VITALS: BP 120/77; PULSE 90; RESP 15; TEMP 36.4; O2SAT 97
[2024-12-22 08:00] VITALS: BP 93/57; PULSE 69; RESP 18; TEMP 36.8; O2SAT 97
[2024-12-22] MEDS: Nicotine 14 MG PATCH.TD24 TRANSDERMA (11:10)
--- NOTE | 2024-12-22 13:09 | HO.PSYCHPN ---
Subjective Subjective Date of Service: 12/22/24 Reason For Visit: F33.2 Interim History: Active on unit. social with peers. patient reports poor sleep last night d/t feeling restless after taking Abilify. Patient stated, I felt tired but I couldn't sleep. I feel good right now though . Continues to deny SI/HI/VH/AH. start: cogentin 0.5mg PO bedtime. Medication Compliance: Yes Mental Status Exam Mental Status Exam Patient Appearance: Well Grooomed Patient Orientation: Person, Place, Time and Situation Level of Consciousness: Awake and Alert Patient Behavior: Appropriate, Cooperative and Good Eye Contact Mood Description: Calm Affect Description: Calm Patient Cognition Impaired: No Ability to Follow Directions: Good Speech Pattern: Clear Memory Description: Intact Hallucinations: None Thought Process: Intact Thought Content: positive for Intact Diagnostics Vital Signs (24Hr): Vital Signs - 24 hr 12/21/24 20:00 12/22/24 08:00 Temperature 97.5 F 98.2 F Pulse Rate 90 69 Respiratory Rate 15 18 Blood Pressure 120/77 93/57 L Pulse Oximetry 97 97 Oxygen Delivery Method Room Air BMI result Body Mass Index 26.7 Medications Medications Current Medications Acetaminophen (Acetaminophen 325 Mg Tablet) 650 mg PO Q6H PRN PRN Reason: Headache/Pain, Scale 1-10 Last Admin: 12/22/24 11:09 Dose: 650 mg Al Hydroxide/Mg Hydroxide (Magnesium Hydrox/Alum Hydrox 30 Ml Oral.Susp) 30 ml PO Q6H PRN PRN Reason: Heartburn/Nausea Aripiprazole (Aripiprazole 5 Mg Tablet) 5 mg PO BEDTIME [facility] Last Admin: 12/21/24 21:25 Dose: 5 mg Hydroxyzine HCl (Hydroxyzine Hcl 25 Mg Tablet) 25 mg PO Q6H PRN PRN Reason: mild anxiety Last Admin: 12/22/24 04:19 Dose: 25 mg Magnesium Hydroxide (Milk Of Magnesia 30 Ml Oral.Susp) 30 ml PO DAILY PRN PRN Reason: Constipation Nicotine (Nicotine 14 Mg Patch.Td24) 14 mg TRANSDERMA DAILY [facility] Last Admin: 12/22/24 11:10 Dose: 14 mg Nicotine Polacrilex (Nicotine Polacrilex 2 Mg Gum) 4 mg BUCCAL Q2H PRN PRN Reason: Nicotine Cravings Last Admin: 12/21/24 18:47 Dose: 4 mg Trazodone HCl (Trazodone Hcl 50 Mg Tablet) 50 mg PO BEDTIME MRX1 PRN PRN Reason: Insomnia Last Admin: 12/21/24 23:08 Dose: 50 mg Allergies Allergies Allergy/AdvReac Type Severity Reaction Status Date / Time No Known Allergies Allergy Verified 12/18/24 21:52 Assessment & Plan Assessment & Plan (1) Suicide ideation: Status: Acute Code(s): R45.851 - Suicidal ideations Plan 49-year-old male with history of hypertension and [place] x2 was a direct transfer from [facility] to [facility] on 12/18/2024 for suicide ideation with plan to kill himself with a gun. On interview with the patient, he notes that 2 days ago, he drove from [place] to [place] to visit people i care for. However, he arrived late, around 22:30. He did not want to wake the people up. Therefore, he sat in his car. After a while, he got out of his car look through the windows of the house to see if lights were on. No lights were on. He returned to his car and smoked a cigarette. He believes the neighbors saw him looking at the windows of the house and notified the police. When the police arrived, he was asked to come out of his vehicle and also whether he possessed a weapon. He told the police that he had a gun he had a gun hidden his vehicle. The police immediately thought he was there to hurt the people at the house. He told the police he but the gun to use it on himself 3 weeks ago because i hit a low point. He notes that he told the police that instead of using the gun on himself, he decided to drive to [place] to visit the people he cares about. The police confiscated the gun and brought him to [facility]. He would not elaborate about hit a low point. However, per nursing collateral, patient but the gun 3 weeks prior to driving to [place] with an intent to kill himself. He noted loneliness as his trigger. Also, per nursing, his sister confirmed that the patient had been in touch with a woman who resides in [place]; therefore, he decided to come to [place] to start a relationship with her. He would try to work on the relationship until March, but intends to keep the gun in case the relationship did not work. He denies history of mental illness. He currently denies anxiety or depression. He denies SI/HI/AH/VH. He notes that he has been drinking 2-3 beers 1-2 days per year for over 2 decades. He smokes cannabis occasionally. He is not interested in taking psychotropic medications at this time. 12/20: TDN to 12/25. Continue to offer treatment. 12/21: Active on unit. social with peers. Reports feeling frustrated d/t being in hospital; however, states he feels pretty good . Patient stated, I'm just being delayed from my plan of renting a place in [place] then finding a job . denies SI/HI/VH/AH. Pt reports he is willing to take medication for treatment of mood; start Abilify 5mg PO bedtime. 12/22: Active on unit. social with peers. patient reports poor sleep last night d/t feeling restless after taking Abilify. Patient stated, I felt tired but I couldn't sleep. I feel good right now though . Continues to deny SI/HI/VH/AH. start: cogentin 0.5mg PO bedtime. Formulation/Clinical reasoning: SI: Likely due to psychosis restrictions. It is possible that he has undiagnosed/untreated mental illness. Continue current treatment regimen. May take p.r.n. medications. Instructed on the risks, benefits, and potential adverse reactions of the medications. Verbalized understanding and agreed with the plan. Plan Admit to M5. CV 15 minutes check. Diagnostics as needed. Collateral contact. Continue remainder of regime. Encouraged full milieu. Discharge planning. Patient educated on: medication risk/benefits Reason for continued inpatient stay Substantial Risk for: med/psych decompensation Time Spent With Patient Time: Total time managing care of this patient today __20__ minutes.
[2024-12-22 20:00] VITALS: BP 124/74; PULSE 110; RESP 18; TEMP 36.4; O2SAT 96
[2024-12-23 08:00] VITALS: BP 112/69; PULSE 80; TEMP 36.5; O2SAT 97
[2024-12-23] MEDS: Nicotine 14 MG PATCH.TD24 TRANSDERMA (08:38)
--- NOTE | 2024-12-23 12:44 | P.PNPSI_ITS ---
Subjective Subjective Date of Service: 12/23/24 Reason For Visit: F33.2 Interim History: Active on unit. social with peers. patient reports feeling good ; he reports poor sleep last night d/t safety checks and not being comfortable in bed. Continues to deny SI/HI/VH/AH. continue current tx plan. Medication Compliance: Yes Side effects from medications: No Attending Groups: Yes Mental Status Exam Mental Status Exam Patient Appearance: Well Grooomed Patient Orientation: Person, Place, Time and Situation Level of Consciousness: Awake and Alert Patient Behavior: Appropriate, Cooperative and Good Eye Contact Mood Description: Calm Affect Description: Calm Patient Cognition Impaired: No Ability to Follow Directions: Good Speech Pattern: Clear Memory Description: Intact Hallucinations: None Delusions: Not Present Thought Process: Intact Thought Content: positive for Intact Diagnostics Vital Signs (24Hr): Vital Signs - 24 hr 12/22/24 20:00 12/23/24 08:00 Temperature 97.6 F 97.7 F Pulse Rate 110 H 80 Respiratory Rate 18 Blood Pressure 124/74 112/69 Pulse Oximetry 96 97 Oxygen Delivery Method Room Air Room Air BMI result Body Mass Index 26.7 Medications Medications Current Medications Acetaminophen (Acetaminophen 325 Mg Tablet) 650 mg PO Q6H PRN PRN Reason: Headache/Pain, Scale 1-10 Last Admin: 12/22/24 11:09 Dose: 650 mg Al Hydroxide/Mg Hydroxide (Magnesium Hydrox/Alum Hydrox 30 Ml Oral.Susp) 30 ml PO Q6H PRN PRN Reason: Heartburn/Nausea Aripiprazole (Aripiprazole 5 Mg Tablet) 5 mg PO BEDTIME [facility] Last Admin: 12/22/24 22:05 Dose: 5 mg Benztropine Mesylate (Benztropine Mesylate 0.5 Mg Tablet) 0.5 mg PO BEDTIME [facility] Last Admin: 12/22/24 22:05 Dose: 0.5 mg Hydroxyzine HCl (Hydroxyzine Hcl 25 Mg Tablet) 25 mg PO Q6H PRN PRN Reason: mild anxiety Last Admin: 12/22/24 04:19 Dose: 25 mg Magnesium Hydroxide (Milk Of Magnesia 30 Ml Oral.Susp) 30 ml PO DAILY PRN PRN Reason: Constipation Nicotine (Nicotine 14 Mg Patch.Td24) 14 mg TRANSDERMA DAILY [facility] Last Admin: 12/23/24 08:38 Dose: 14 mg Nicotine Polacrilex (Nicotine Polacrilex 2 Mg Gum) 4 mg BUCCAL Q2H PRN PRN Reason: Nicotine Cravings Last Admin: 12/23/24 08:39 Dose: 4 mg Trazodone HCl (Trazodone Hcl 50 Mg Tablet) 50 mg PO BEDTIME MRX1 PRN PRN Reason: Insomnia Last Admin: 12/21/24 23:08 Dose: 50 mg Allergies Allergies Allergy/AdvReac Type Severity Reaction Status Date / Time No Known Allergies Allergy Verified 12/18/24 21:52 Assessment & Plan Assessment & Plan (1) Suicide ideation: Status: Acute Code(s): R45.851 - Suicidal ideations Plan 49-year-old male with history of hypertension and [place] x2 was a direct transfer from [facility] to [facility] on 12/18/2024 for suicide ideation with plan to kill himself with a gun. On interview with the patient, he notes that 2 days ago, he drove from [place] to [place] to visit people i care for. However, he arrived late, around 22:30. He did not want to wake the people up. Therefore, he sat in his car. After a while, he got out of his car look through the windows of the house to see if lights were on. No lights were on. He returned to his car and smoked a cigarette. He believes the neighbors saw him looking at the windows of the house and notified the police. When the police arrived, he was asked to come out of his vehicle and also whether he possessed a weapon. He told the police that he had a gun he had a gun hidden his vehicle. The police immediately thought he was there to hurt the people at the house. He told the police he but the gun to use it on himself 3 weeks ago because i hit a low point. He notes that he told the police that instead of using the gun on himself, he decided to drive to [place] to visit the people he cares about. The police confiscated the gun and brought him to [facility]. He would not elaborate about hit a low point. However, per nursing collateral, patient but the gun 3 weeks prior to driving to [place] with an intent to kill himself. He noted loneliness as his trigger. Also, per nursing, his sister confirmed that the patient had been in touch with a woman who resides in [place]; therefore, he decided to come to [place] to start a relationship with her. He would try to work on the relationship until March, but intends to keep the gun in case the relationship did not work. He denies history of mental illness. He currently denies anxiety or depression. He denies SI/HI/AH/VH. He notes that he has been drinking 2-3 beers 1-2 days per year for over 2 decades. He smokes cannabis occasionally. He is not interested in taking psychotropic medications at this time. 12/20: TDN to 12/25. Continue to offer treatment. 12/21: Active on unit. social with peers. Reports feeling frustrated d/t being in hospital; however, states he feels pretty good . Patient stated, I'm just being delayed from my plan of renting a place in [place] then finding a job . denies SI/HI/VH/AH. Pt reports he is willing to take medication for treatment of mood; start Abilify 5mg PO bedtime. 12/22: Active on unit. social with peers. patient reports poor sleep last night d/t feeling restless after taking Abilify. Patient stated, I felt tired but I couldn't sleep. I feel good right now though . Continues to deny SI/HI/VH/AH. start: cogentin 0.5mg PO bedtime. 12/23:continue current tx plan. Formulation/Clinical reasoning: SI: Likely due to psychosis restrictions. It is possible that he has undiagnosed/untreated mental illness. Continue current treatment regimen. May take p.r.n. medications. Instructed on the risks, benefits, and potential adverse reactions of the medications. Verbalized understanding and agreed with the plan. Plan Admit to M5. CV 15 minutes check. Diagnostics as needed. Collateral contact. Continue remainder of regime. Encouraged full milieu. Discharge planning. Patient educated on: diagnosis, medication risk/benefits and therapeutic strategies Reason for continued inpatient stay Substantial Risk for: med/psych decompensation Time Spent With Patient Time: Total time managing care of this patient today _20___ minutes.
[2024-12-23 19:53] VITALS: BP 155/80; PULSE 100; RESP 15; TEMP 36.9; O2SAT 96
[2024-12-23 22:28] VITALS: BP 120/80
[2024-12-24 08:00] VITALS: BP 130/83; PULSE 79; RESP 15; TEMP 36.9; O2SAT 96
[2024-12-24] MEDS: Nicotine 14 MG PATCH.TD24 TRANSDERMA (09:01)
--- NOTE | 2024-12-24 16:22 | P.PNPSI_ITS ---
Subjective Subjective Reason For Visit: F33.2 Diagnostics Vital Signs (24Hr): Vital Signs - 24 hr 12/23/24 19:53 12/23/24 22:28 12/24/24 08:00 Temperature 98.4 F 98.4 F Pulse Rate 100 79 Respiratory Rate 15 15 Blood Pressure 155/80 H 120/80 130/83 Pulse Oximetry 96 96 Oxygen Delivery Method Room Air BMI result Body Mass Index 26.7 Medications Medications Current Medications Acetaminophen (Acetaminophen 325 Mg Tablet) 650 mg PO Q6H PRN PRN Reason: Headache/Pain, Scale 1-10 Last Admin: 12/22/24 11:09 Dose: 650 mg Al Hydroxide/Mg Hydroxide (Magnesium Hydrox/Alum Hydrox 30 Ml Oral.Susp) 30 ml PO Q6H PRN PRN Reason: Heartburn/Nausea Aripiprazole (Aripiprazole 5 Mg Tablet) 5 mg PO BEDTIME [facility] Last Admin: 12/23/24 22:09 Dose: 5 mg Benztropine Mesylate (Benztropine Mesylate 0.5 Mg Tablet) 0.5 mg PO DAILY PRN PRN Reason: Extrapyramidal Effects Hydroxyzine HCl (Hydroxyzine Hcl 25 Mg Tablet) 25 mg PO Q6H PRN PRN Reason: mild anxiety Last Admin: 12/22/24 04:19 Dose: 25 mg Magnesium Hydroxide (Milk Of Magnesia 30 Ml Oral.Susp) 30 ml PO DAILY PRN PRN Reason: Constipation Nicotine (Nicotine 14 Mg Patch.Td24) 14 mg TRANSDERMA DAILY [facility] Last Admin: 12/24/24 09:01 Dose: 14 mg Nicotine Polacrilex (Nicotine Polacrilex 2 Mg Gum) 4 mg BUCCAL Q2H PRN PRN Reason: Nicotine Cravings Last Admin: 12/24/24 13:04 Dose: 4 mg Trazodone HCl (Trazodone Hcl 50 Mg Tablet) 50 mg PO BEDTIME MRX1 PRN PRN Reason: Insomnia Last Admin: 12/21/24 23:08 Dose: 50 mg Allergies Allergies Allergy/AdvReac Type Severity Reaction Status Date / Time No Known Allergies Allergy Verified 12/18/24 21:52 Assessment & Plan Assessment & Plan (1) Suicide ideation: Status: Acute Code(s): R45.851 - Suicidal ideations Plan 49-year-old male with history of hypertension and [place] x2 was a direct transfer from [facility] to [facility] on 12/18/2024 for suicide ideation with plan to kill himself with a gun. On interview with the patient, he notes that 2 days ago, he drove from [place] to [place] to visit people i care for. However, he arrived late, around 22:30. He did not want to wake the people up. Therefore, he sat in his car. After a while, he got out of his car look through the windows of the house to see if lights were on. No lights were on. He returned to his car and smoked a cigarette. He believes the neighbors saw him looking at the windows of the house and notified the police. When the police arrived, he was asked to come out of his vehicle and also whether he possessed a weapon. He told the police that he had a gun he had a gun hidden his vehicle. The police immediately thought he was there to hurt the people at the house. He told the police he but the gun to use it on himself 3 weeks ago because i hit a low point. He notes that he told the police that instead of using the gun on himself, he decided to drive to [place] to visit the people he cares about. The police confiscated the gun and brought him to [facility]. He would not elaborate about hit a low point. However, per nursing collateral, patient but the gun 3 weeks prior to driving to [place] with an intent to kill himself. He noted loneliness as his trigger. Also, per nursing, his sister confirmed that the patient had been in touch with a woman who resides in [place]; therefore, he decided to come to [place] to start a relationship with her. He would try to work on the relationship until March, but intends to keep the gun in case the relationship did not work. He denies history of mental illness. He currently denies anxiety or depression. He denies SI/HI/AH/VH. He notes that he has been drinking 2-3 beers 1-2 days per year for over 2 decades. He smokes cannabis occasionally. He is not interested in taking psychotropic medications at this time. 12/20: TDN to 12/25. Continue to offer treatment. 12/21: Active on unit. social with peers. Reports feeling frustrated d/t being in hospital; however, states he feels pretty good . Patient stated, I'm just being delayed from my plan of renting a place in [place] then finding a job . denies SI/HI/VH/AH. Pt reports he is willing to take medication for treatment of mood; start Abilify 5mg PO bedtime. 12/22: Active on unit. social with peers. patient reports poor sleep last night d/t feeling restless after taking Abilify. Patient stated, I felt tired but I c ouldn't sleep. I feel good right now though . Continues to deny SI/HI/VH/AH. start: cogentin 0.5mg PO bedtime. 12/23:continue current tx plan. Formulation/Clinical reasoning: SI: Likely due to psychosis restrictions. It is possible that he has undiagnosed/untreated mental illness. Continue current treatment regimen. May take p.r.n. medications. Instructed on the risks, benefits, and potential adverse reactions of the medications. Verbalized understanding and agreed with the plan. Plan Admit to M5. CV 15 minutes check. Diagnostics as needed. Collateral contact. Continue remainder of regime. Encouraged full milieu. Discharge planning. Time Spent With Patient Time: Total time managing care of this patient today ____ minutes.
[2024-12-24 20:00] VITALS: BP 124/81; PULSE 107; RESP 16; TEMP 36.6; O2SAT 97
[2024-12-25] MEDS: Nicotine 14 MG PATCH.TD24 TRANSDERMA (08:39)
--- NOTE | 2024-12-25 12:36 | P.DS_ITS ---
DS: Providers Provider Date of admission: 12/18/24 21:14 Primary care physician: Unknown Physician Consults: 12/18/24 21:53 Consult to Hospitalist Routine Comment: Consulting Provider[place] [facility] Reason For Exam: transfer pt DS: Diagnosis Discharge Diagnosis (1) Suicide ideation: Status: Acute DS: Medications Discharge Medications Home Medications: Previous Rx's ?Medication ?Instructions ?Recorded aripiprazole 5 mg tablet (Abilify) 5 mg PO BEDTIME #30 tabs 12/25/24 varenicline tartrate 0.5 mg (11)-1 0.5 ea PO PER PKG D IR #53 ea 12/25/24 mg (42) tablets in a dose pack ([employer] Starting Month Box) Data Data Completed and Pending Completed studies during hospitalization [Text1]: 12/19/24 08:16 Estimat Average Glucose 114 Hemoglobin A1c % 5.6 Magnesium 2.2 Triglycerides 174 H Cholesterol 202 H LDL Cholesterol, Calc 135 H HDL Cholesterol 33 L Vitamin B12 703 Folate 4.1 TSH 0.82 Free T4 1.00 DS: Summary Time Spent with Patient Time attestation: Total time managing care of this patient today ____ minutes. Discharge Plan Discharge Anticipated Discharge Date/Time: 12/25/24 10:02 Patient Disposition: Xfer Other Discharge Diagnosis: Adjustment Reaction with Mixed Emotional Features Referrals: [facility] [Other] - 3-5 Days Referral Note: You can contact the [place] and set up an appointment to complete insurance intake. [facility] [Other] - 3-5 Days Referral Note: You can contact the [place] and set up an appointment to complete insurance intake. [facility] [Other] - 3-5 Days Referral Note: To continue medications you will need an outpatient medication prescriber. Due to being in the [facility] you can reach out to this behavioral Health Center. [facility] [Other] - 1 Week Referral Note: This is a same day walk-in clinic for an intake for psychiatry and therapy appointments. Please bring your discharge packet as you will be prioritized and make sure you get to a [facility] sooner than later as there are waitlists for psychiatry and therapy appointments. Hours; Monday: 9:00 am-5:00 pm Monday - Monday: 8:00 am-8:00 pm Monday: 9:00 am-5:00 pm [facility] [place] [Other] - 3-5 Days Referral Note: [facility] to [facility]. Physician,Unknown J [Primary Care Provider, Medical] - 1 Week Discharge Medications: New aripiprazole [Abilify] 5 mg Tablet 5 mg PO BEDTIME Qty: 30 0RF varenicline tartrate [[employer] Starting Month Box] 0.5 mg (11)- 1 mg (42) tablets,dose pack 0.5 ea PO PER PKG DIR Qty: 53 0RF Discharge Orders: Discharge Order (Routine); Ordered 12/25/24 Ordered By: Kassy Rendon Diet: Advance to usual diet Activity on Discharge: As tolerated Stand Alone Forms: Patient Portal Discharge page Print Language: Cymraes Care Plan Goals: Mood and Behavioral Stabilization Health Concerns: Mood and Behavioral Stabilization Plan of Treatment: Take medications as directed Consider ongoing treatment Call/Return as needed Assessment: No SI,HI,AH,VH No sx of acute pramod, psychosis
== END 2024-12-25 11:10 | disposition other institution (70) | DRG 882 ==
PROVIDERS: Admitting Provider Psychiatry & Neurology Psychiatry; Visit Provider Clinical Nurse Specialist Psychiatric/Mental Health, Adult
DX: F43.25 Adjustment disorder with mixed disturbance of emotions and conduct (principal); R45.851 Suicidal ideations; I25.10 Atherosclerotic heart disease of native coronary artery without angina pectoris; I10 Essential (primary) hypertension; I25.2 Old myocardial infarction; F17.210 Nicotine dependence, cigarettes, uncomplicated; Z71.6 Tobacco abuse counseling; Z79.899 Other long term (current) drug therapy
CPT/HCPCS: 36415; 80061; 82607; 82746; 83036; 83735; 84439; 84443

== ENCOUNTER → 2024-12-18 21:14 | Outpatient (BNV) | payer SELFPAY | PROVIDERS: Admitting Provider Psychiatry & Neurology Psychiatry; Visit Provider Nurse Practitioner Family | DX: F33.2 Major depressive disorder, recurrent severe without psychotic features (principal); R45.851 Suicidal ideations | CPT/HCPCS: 90792; 99231; 99232 ==

== ENCOUNTER → 2024-12-18 21:14 | Outpatient (BNV) | payer SELFPAY | PROVIDERS: Admitting Provider Psychiatry & Neurology Psychiatry; Visit Provider Physician Assistant Medical | DX: I25.10 Atherosclerotic heart disease of native coronary artery without angina pectoris (principal); Z95.5 Presence of coronary angioplasty implant and graft | CPT/HCPCS: 99221 ==